=== PATIENT | male | born 1945 | race Caucasian/White ===

== ENCOUNTER → 2023-10-15 | Outpatient (CLI) | payer OTHER ==
[~2023-10-15] MED LIST: CYCL10 PO; GLUC500 PO; METO25ER PO; OMEP10ER PO; UBID100 PO
[2023-10-15 10:04] LABS: BASOPHILS ABSOLUTE AUTO 0.07 K/mm3 (0.00-0.23); BASOPHILS PERCENT AUTO 1 % (0-2); EOSINOPHILS ABSOLUTE AUTO 0.22 K/mm3 (0.00-0.68); EOSINOPHILS PERCENT AUTO 3 % (0-6); Hemoglobin 15.8 g/dL (13.5-17.5); IMMATURE GRAN ABSOLUTE AUTO 0.02 K/mm3 (0.00-0.10); IMMATURE GRAN PERCENT AUTO 0 % (0-1); LYMPHOCYTES ABSOLUTE AUTO 1.54 K/mm3 (0.84-5.20); LYMPHOCYTES PERCENT AUTO 19 % (21-46); MONOCYTES ABSOLUTE AUTO 0.68 K/mm3 (0.16-1.47); MONOCYTES PERCENT AUTO 9 % (4-13); Mean Corpuscular HGB 29.6 pg (26.0-34.0); Mean Corpuscular HGB Conc 32.2 g/dL (31.5-36.5); Mean Corpuscular Volume 92 fL (80-100); Mean Platelet Volume 11.1 fL (9.1-12.4); NEUTROPHILS ABSOLUTE AUTO 5.49 K/mm3 (1.96-9.15); NEUTROPHILS PERCENT AUTO 69 % (41-73); Platelet Count 240 K/mm3 (150-400); RDW Coefficient Variation 13.7 % (11.7-14.2); RDW Standard Deviation 46.2 fL (35.1-46.3); Red Blood Cell Count 5.33 M/mm3 (4.30-5.90); White Blood Cell Count 8.02 K/mm3 (4.00-11.30)
[2023-10-15 10:28] LABS: Albumin, Blood 3.5 g/dL (3.4-5.0); Albumin/Globulin Ratio 0.9 (0.8-1.8); Bilirubin, Total 1.5 mg/dL (0.1-1.0); Bun/Creatinine Ratio 16.9 (12.0-20.0); Calcium, Blood 9.2 mg/dL (8.5-10.1); Creatinine, Blood 1.42 mg/dL (0.60-1.20); Globulin, Blood 4.1 g/dL (2.2-4.0); Potassium, Blood 4.4 mmol/L (3.5-5.5); Thyroid Stimulating Hormone 2.688 uIU/mL (0.360-4.800); Total Protein, Blood 7.6 g/dL (6.4-8.2)
== END ==
LOC: LAB 09:59 → LAB SHORT 09:59
PROVIDERS: Family Medicine
DX: I10 Essential (primary) hypertension (principal)
CPT/HCPCS: 80053; 84443; 84484; 85025

== ENCOUNTER 2024-03-25 07:01 | Day surgery (SDC) | payer OTHER ==
[2024-03-25] VITALS (13 sets, daily range): BP systolic 106–155; BP diastolic 44–74
[~2024-03-25] VITALS: Ht 179 cm; Wt 120.6 kg
[~2024-03-25 07:01] MED LIST changes: +Acetaminophen 500 MG Tab PO SCH; +COQ1050 MG PO; +CeFAZolin Sodium 3,000 MG in NS 100 ML IV SCH; +Chlorhexidine Mouth Care 15 ML UDC MT SCH; +ELIQUIS5 M4 PO; +FISH OIL 1,0001 EA10 PO; +GLUCOPHAGE1000 M1 PO; +Lactated Ringer's 1,000 ML IV SCH; +OLME5TAB PO; +OxyCODONE HCL 10 MG TABCR PO SCH; +Preservision S1 EACH PO; +ROSUVASTATIN CA20 MG PO; +Ropivacaine 0.5% HCl/Pf 123.125 MG,EPINEPHrine HCL 0.25 MG,Ketorolac Tromethamine 15 MG... INFIL SCH; +THERA-D2000 UNIT PO; +Tranexamic Acid 1,000 MG in NS 100 ML IV SCH; +VITAMIN B12500 MCG PO
[2024-03-25] MEDS ORDERED: AMLODIPINE BES2.5 MG PO (07:51)
[2024-03-25] MEDS ORDERED: PREGABALIN75 MG PO (07:52)
--- NOTE | 2024-03-25 08:17 | NUR ---
History, Chart, Medications and Allergies reviewed before start of procedure. Pre-Op teaching done. Pt verbalizes understanding. Patient confirms NPO status and agrees with scheduled surgery. Patient reports completing Chlorhexadine shower X2 prior to admission to hospital. Surgical site prepped with 2% Chlorhexidine cloth wipe. Lungs clear T/O to Auscultation. Patient States Post-Procedure ride home has been arranged.
[2024-03-25] MEDS ORDERED: propofoL 150 ML IV ONE (09:01)
[2024-03-25] MEDS ORDERED: Midazolam HCl 1MG / ML 2ML Vial ONE (09:02)
[2024-03-25] MEDS ORDERED: Phenylephrine HCl 10mg/ml 1 ml Vial ONE (09:33)
[2024-03-25] MEDS ORDERED: HYDROmorphone HCl/Pf 1MG SYR IV PRN (09:45)
[2024-03-25] MEDS ORDERED: DiphenhydrAMINE HCL 25 MG Cap PO PRN (09:45)
[2024-03-25] MEDS ORDERED: FLU VACC TS2024-25(6MOS UP)/PF 45 MCG/0.5 ML SYRINGE IM SCH (09:45)
[2024-03-25] MEDS ORDERED: Promethazine HCl 25 MG Tab PO PRN (09:50)
[2024-03-25] MEDS ORDERED: Bisacodyl 10 MG Supp PR PRN (09:50)
[2024-03-25] MEDS ORDERED: OxyCODONE HCL 5 MG TAB PO PRN ×2 (09:50)
[2024-03-25] MEDS ORDERED: Ondansetron HCl 2 MG / ML 2ML Vial IV PRN (09:50)
[2024-03-25] MEDS ORDERED: Metoclopramide HCl 5MG / ML 2ML Vial IV PRN (09:55)
[2024-03-25] MEDS ORDERED: Magnesium Hydroxide Conc 10 ML UDC PO PRN (09:55)
[2024-03-25] MEDS ORDERED: Lactated Ringer's 1,000 ML IV SCH (09:55)
[2024-03-25] MEDS ORDERED: Insulin Regular 100 UNIT/ML 10ML Vial SC SCH (11:30)
--- NOTE | 2024-03-25 11:53 | NUR ---
PT ARRIVED TO THE ROOM FROM PACU AT APPROXIMATELY 1145. PT DENIES PAIN. R KNEE INCISION SITE WNL, DRESSING C/D/I. PT PROVIDED WITH CALL LIGHT AND EDUCATED TO USE. FAMILY AT BEDSIDE. PT TOLERATING CLEAR LIQUIDS. VSS.
[2024-03-25] MEDS ORDERED: Ketorolac Tromethamine 15mg Vial IV SCH (12:00)
[2024-03-25] MEDS ORDERED: Acetaminophen 500 MG Tab PO SCH (16:00)
[2024-03-25] MEDS ORDERED: CeFAZolin Sodium 3,000 MG in NS 100 ML IV SCH (17:00)
--- NOTE | 2024-03-25 17:00 | NUR ---
PT'S URINE IS DARK, HYDRATION ENCOURAGED.
--- NOTE | 2024-03-25 17:32 | NUR ---
DISCHARGE PT PROVIDED WITH WRITTEN AND VERBAL DISCHARGE INSTRUCTIONS, PT REPORTED UNDERSTANDING. PAIN MINIMAL PRIOR TO DISCHARGED, MANAGED WITH TYLENOL. PT CLEARED THERAY, WAS ABLE TO VOID, TOLERATED PO AND VSS AT TIME OF DISCHARGE. PT ASSISTED OUT IN A W/C AT 1728.
[2024-03-25] MEDS ORDERED: Pregabalin 75 MG Cap PO SCH (21:00)
[2024-03-25] MEDS ORDERED: MetFORMIN HCl 500 mg PO SCH (21:00)
[2024-03-25] MEDS ORDERED: Losartan Potassium 25 MG Tab PO SCH (21:00)
[2024-03-25] MEDS ORDERED: Misc. Capsule PO SCH (21:00)
[2024-03-25] MEDS ORDERED: Docusate Sodium 100 MG Cap PO SCH (21:00)
[2024-03-26] MEDS ORDERED: Cyanocobalamin 500 MCG Tab PO SCH (09:00)
[2024-03-26] MEDS ORDERED: Apixaban 5 MG Tab PO SCH (09:00)
[2024-03-26] MEDS ORDERED: AmLODIPine Besylate 5 MG Tab PO SCH (09:00)
[2024-03-26] MEDS ORDERED: Metoprolol Succinate 25 MG TABCR PO SCH (09:00)
[2024-03-26] MEDS ORDERED: Cholecalciferol 1000 Unit Tablet (=25MCG) PO SCH (09:00)
[2024-03-26] MEDS ORDERED: Misc. Tablet PO SCH (09:00)
[2024-03-26] MEDS ORDERED: Rosuvastatin Calcium 10 MG Tab PO SCH (09:40)
== END 2024-03-25 17:31 | disposition home or self-care (01) ==
LOC: ORSCMMR 07:01 → ORD 08:15 → ORSCMMR 08:15 → SURS 11:37 → ORSCMMR 17:31
PROVIDERS: Orthopaedic Surgery
PROC: 8E0Y0CZ Robotic Assisted Procedure of Lower Extremity, Open Approach (ICD-10-PCS; principal; 2024-03-25 08:15)
PROC: 0SRC0JA Replacement of Right Knee Joint with Synthetic Substitute, Uncemented, Open Approach (ICD-10-PCS; principal; 2024-03-25 08:15)
DX: M17.11 Unilateral primary osteoarthritis, right knee (principal); I48.91 Unspecified atrial fibrillation; I10 Essential (primary) hypertension; E11.9 Type 2 diabetes mellitus without complications; G47.33 Obstructive sleep apnea (adult) (pediatric); Z85.46 Personal history of malignant neoplasm of prostate; Z79.01 Long term (current) use of anticoagulants; Z79.84 Long term (current) use of oral hypoglycemic drugs; Z79.899 Other long term (current) drug therapy
CPT/HCPCS: 73560-RT; 82947; 97110; 97116; 97161; 97530; A9270; C1713; C1776; J0171; J0690; J0735; J1885; J2250; J2371; J2704; J2795; J7120